=== PATIENT | female | born 1975 | race Caucasian/White ===

== ENCOUNTER 2017-04-14 08:16 | Observation (INO) ==
--- NOTE | 2017-04-14 10:53 | Cardiology Consult Note ---
Date of Encounter: 04/14/17 Time of Encounter: 10:30 Assessment and Plan (1) Idiopathic ventricular tachycardia Current Visit: Yes Status: Acute Most likely idiopathic VT. QT is normal. Potassium normal. She has no strong risk factors for coronary artery disease. Will discontinue amiodarone and start verapamil. Would likely benefit from catheter ablation. I discussed that her prognosis is relatively good if we confirm it is idiopathic VT. Echo ordered. Consult EP for definitive therapy. (2) Pre-syncope Current Visit: Yes Status: Acute 2/2 VT Discussion w patient/family: The assessment and plan as outlined above was discussed with the patient and/or family members who expressed understanding and agreement. All questions were answered. Thank you for involving us in the care of your patient. Please call with any questions. History of Present Illness Consult date: 04/14/17 Chief complaint: Dizziness/presyncope History of present illness: Mrs. Young is a 42 year old female with no previous cardiac history who regularly sees a physician who presents with complaint of dizziness and presyncope that is ongoing intermittently for a month with a few episodes. She notes upper chest/throat tightness when it occurs. No syncope. She is physically active near daily with 30 minutes of treadmill / day with running/ jogging without any limitations. She thinks she may have had an episode while on the treadmill. She went to [facility] ED and found to have salvos of VT longest being approximately 45 seconds without syncope. There she was started on amiodarone and sent here for definitive therapy. She would like to go to [place] this weekend ( night) if able, to visit family. Past Med Surg Social Fam HX - Past Medical History Medical history: no medical history Psychiatric history: anxiety - Social History Smoking Status: Never smoker Alcohol use: none Drug use: none Medications and Allergies l-Norgest/E.estradiol-E.estrad [Levono-E Estrad 0.15-0.03-0.01] 1 tab PO DAILY 04/14/17 [History] Allergies latex Allergy (Verified 04/14/17 07:09) Rash All Systems Review: A 10-system review of systems was performed and is negative for pertinent findings except as documented above in the HPI. - Constitutional Constitutional: no chills, no fever(s) - EENT Eyes: blurred vision, no loss of vision Nose, mouth and throat: no bleeding gums, no epistaxis - Cardiovascular Cardiovascular: rapid heart rate, no chest pain at rest, no chest pain with exertion, no irregular heart rhythm - Respiratory Respiratory: no dyspnea, no hemoptysis - Gastrointestinal Gastrointestinal: no coffee ground emesis, no hematochezia - Genitourinary Genitourinary: no dysuria, no hematuria - Musculoskeletal Musculoskeletal: no arthralgias, no myalgias - Integumentary Integumentary: no erythema, no rash - Neurological Neurological: no abnormal speech, no dizziness - Psychiatric Psychiatric: anxiety, no depression - Hematological/Lymphatic Hematologic/Lymphatic: no easy bleeding, no easy bruising Physical Examination Vital Signs, Last 4 Hours Temp Pulse Resp BP Pulse Ox 04/14/17 10:39 136/100 04/14/17 10:18 97.8 F 87 16 149/97 99 04/14/17 09:47 89 149/97 General: Conversant, No Apparent Distress HEENT: Atraumatic Neck: No JVD Cardiac: Reg Rate and Rhythm Lungs: Normal Breath Sounds Neuro: Alert and responsive Abdomen: Soft Skin: No rashes noted on visualized skin Musculoskeletal: No Chest Wall Tenderness Extremities: No Edema Results - EKG Interpretation EKG results cardiology: personally reviewed, sinus rhythm (noromal qt) Consult Discharge Plan - Plan Referrals: Monica Rosa CNP [Advanced Practice Nurse] - 04/22/17 10:30 am Surekha Matos CNP [Partnered Physician] - (OFFICE WILL CALL PATIENT AT HOME WITH AN APPOINTMENT) NO,PCP [Primary Care Provider] -
[2017-04-14] MEDS ORDERED: Acetaminophen 325 MG TABLET PO PRN (10:56)
[2017-04-14] MEDS ORDERED: Ondansetron 4 MG/2 ML VIAL IVP PRN (10:56)
[2017-04-14] MEDS ORDERED: *HR* Morphine 2 MG/ML SYRINGE IVP PRN (10:56)
[2017-04-14] MEDS ORDERED: Naloxone 0.4 MG/ML INJ IVP PRN (10:56)
[2017-04-14] MEDS ORDERED: 0.9 % Sodium Chloride 1,000 ML IVC SCH (11:00)
--- NOTE | 2017-04-14 11:07 | Internal Med History&Physical ---
Date of Encounter: 04/14/17 Time of Encounter: 11:05 Assessment and Plan (1) Idiopathic ventricular tachycardia Current visit: Yes Status: Acute Unknown etiology Continue telemetry, start metoprolol 25 mg twice a day. Amiodarone was stopped by cardiology. Cardiology was consulted, electrophysiology will be consulted Check magnesium Echocardiogram ordered May repeat EKG when symptomatic Fall precautions Famotidine for GI prophylaxis and sequential compression devices for DVT prophylaxis. Patient will be admitted for observation. Full code. Time spent on this admission 40 minutes (2) Pre-syncope Current visit: Yes Status: Acute Internal Medicine - H&P: HPI Chief complaint: Near syncope Admitted From: Emergency Dept History of present illness: Ms. Young is a 42 year old female with no past medical history or previous cardiac history who regularly sees a physician who presented to [facility] ER with complaint of dizziness and presyncope that is ongoing intermittently for a month with a few episodes. She notes upper chest/throat tightness when it occurs. No syncope. She is physically active near daily with 30 minutes of treadmill / day with running/jogging without any limitations. She thinks she may have had an episode while on the treadmill. At [facility], she was found to have episodes of VT longest being approximately 45 seconds without syncope. There she was started on amiodarone and sent here for definitive therapy. She had a syncopal episode a month ago, and almost every other day recently she has been blacking out. CT scan of the head is unremarkable, EKG is normal. Was evaluated by cardiology, amiodarone was stopped and metoprolol was recommended Past Med Surg Social Fam HX - Past Medical History Medical history: no medical history Psychiatric history: anxiety - Past Surgical History Surgical History: no surgical history - Social History Smoking Status: Never smoker Smokeless Tobacco Status: No Alcohol use: none Drug use: none - Additional Family History Additional family history: Mother with hypertension Internal Medicine - H&P: Meds l-Norgest/E.estradiol-E.estrad [Levono-E Estrad 0.15-0.03-0.01] 1 tab PO DAILY 04/14/17 [History] Allergies latex Allergy (Verified 04/14/17 07:09) Rash All Systems PM: A 10-system review of systems was performed and is negative for pertinent findings except as documented above in the HPI. Review of systems: No symptoms of the moment. Other systems out of the 10 reviewed were negative - Constitutional Vitals: Temp Pulse Resp BP Pulse Ox 97.8 F 87 16 136/100 99 04/14/17 10:18 04/14/17 10:18 04/14/17 10:18 04/14/17 10:39 04/14/17 10:18 General appearance: Present: A&O X 3 - Head Head exam: Present: atraumatic, normocephalic - Eye Eye exam: Present: PERRL, conjuntiva pink, sclera anicteric Pupils: Present: PERRL - Neck Neck exam general surgery: Present: supple, trachea midline. Absent: lymphadenopathy - Respiratory Respiratory exam: Present: CTAB. Absent: accessory muscle use, rales, rhonchi, wheezes - Cardiovascular Cardiovascular exam: Present: RRR, +S1, +S2. Absent: diastolic murmur, gallop, rubs, systolic murmur - GI/Abdominal GI/Abdominal exam: Present: normal bowel sounds, soft, no peritoneal signs. Absent: distended, tenderness - Extremities Exam Extremities exam: Present: warm, radial pulses palpable and symetrical. Absent : calf tenderness, cyanotic, pedal edema - Neurological Exam Neurological exam: Present: CN II-XII intact, oriented X3, no focal deficits. Absent: pronater drift, facial droop, speech deficit - Skin Skin exam: Present: dry, intact Internal Med - H&P Results - Labs Labs: Potassium 3.9, labs available from [facility] laboratory, CT scan of the head unremarkable. Magnesium was not tested
--- NOTE | 2017-04-14 11:29 | Cardiology Consult Note ---
Date of Encounter: 04/14/17 Time of Encounter: 11:15 Assessment and Plan (1) Idiopathic ventricular tachycardia Current Visit: Yes Status: Acute EP recommendations: Unclear etiology. Reports 1 month history of palpitations, pre-syncope, and x1 syncopal episode a month ago. Reports palpitations seem to improve with deep breathing. Denies immediate family hx of VT, syncope, or SCD. Admitted from [facility]--per monitor (1 lead--II); VT. Started on IV amio and transferred to [facility]. Amio gtt d/c'ed, was started on CCB by Dr. Gallegos. Agree with TTE. Keep K >4.0, and Mag >2.0. K 3.9 today, will replace with po supplementation x1. Mag pending. TSH normal. Otherwise, labs are within expected range. Discussed with Dr. Chon Encinas; patient will likely need LHC to r/o ischemic etiology. Will make NPO after MN. (2) Pre-syncope Current Visit: Yes Status: Acute Likely secondary to VT. Plan as above. Discussion w patient/family: The assessment and plan as outlined above was discussed with the patient and/or family members who expressed understanding and agreement. All questions were answered. Thank you for involving us in the care of your patient. Please call with any questions. The patient will be discussed and reviewed with Dr. Chon Encinas, changes to be made accordingly. History of Present Illness Consult date: 04/14/17 Requesting physician: Bill Gallegos Consult reason: EP consult--VT Chief complaint: Palpitations, pre-syncope History of present illness: This document serves as an Electrophysiology Consult note. Ms. Young is a 42 year old female with no significant PMH who presented to [facility] ED today with complaints of pre-syncope and palpitations. States 1-month history of palpitations associated dizziness, chest tingling, and x1 syncopal episode a month ago. Saw PCP who ordered CT of head. Over the past month, reports 2-3 pre-syncopal episodes; nothing seems to trigger symptoms. Symptoms typically will improve with deep breathing. She reports she is fairly active, runs on treadmill 5x weekly for at least 30 minutes. Denies chest pain or discomfort. Denies illicit or recreational drug use. Denies tobacco, ETOH, or use of diet pills. States drinks 1 cup of coffee per day. No significant immediate family hx of CAD or SCD--states maternal grandmother had CHF and defibrillator. Past Med Surg Social Fam HX - Past Medical History Attestation: Yes The following information was validated with the patient. Source: patient Medical history: no medical history Psychiatric history: anxiety - Past Surgical History Surgical History: no surgical history - Social History Smoking Status: Never smoker Smokeless Tobacco Status: No Alcohol use: none Drug use: none - Family History Mother Living Status: Still Living Hx Family Cardiac Disorders: Yes (HTN) Father Living Status: Still Living (No significant medical history.) Maternal Grandmother Living Status: Hx Family Cardiac Disorders: Yes (CHF, ICD) Hx Family Endocrine Disorder: Yes (DMII) Medications and Allergies l-Norgest/E.estradiol-E.estrad [Levono-E Estrad 0.15-0.03-0.01] 1 tab PO DAILY 04/14/17 [History] Allergies latex Allergy (Verified 04/14/17 07:09) Rash All Systems Review: A 10-system review of systems was performed and is negative for pertinent findings except as documented above in the HPI. - Cardiovascular Cardiovascular: as per HPI Physical Examination Vital Signs, Last 4 Hours Temp Pulse Resp BP Pulse Ox 04/14/17 10:39 136/100 04/14/17 10:18 97.8 F 87 16 149/97 99 04/14/17 09:47 89 149/97 General: Conversant, No Apparent Distress HEENT: Atraumatic, Normocephaly, Mucus Membranes Moist Neck: Normal carotid pulses Cardiac: Reg Rate and Rhythm, Normal S1 and S2 Lungs: Normal Breath Sounds Neuro: Alert and responsive Abdomen: Soft Skin: No rashes noted on visualized skin Musculoskeletal: No Chest Wall Tenderness Extremities: No Edema, Normal Pulses Results - Imaging and Cardiology Echo: pending Other Results: Telemetry: HR 80's. - EKG Interpretation EKG results cardiology: personally reviewed Consult Discharge Plan - Plan Referrals: Monica Rosa CNP [Advanced Practice Nurse] - 04/22/17 10:30 am Surekha Matos CNP [Partnered Physician] - (OFFICE WILL CALL PATIENT AT HOME WITH AN APPOINTMENT) NO,PCP [Primary Care Provider] -
[2017-04-14] MEDS: Magnesium Oxide 400 MG TABLET PO SCH ×2 (15:00→20:29)
--- NOTE | 2017-04-14 15:12 | ECHO - Doppler Report ---
Echo with Saline Contrast Name: Larissa Young Date of Study: 04/14/2017 Date: 1975 Ht: 66.0 in Medical Record#: [id number] Age: 42 Wt: 144.0 lb Gender: Female BSA: 1.74 Order #: [id number] Location: [facility] Room #: [id number] Reading Physician: Angela Hameed DO Quality Control Manager: Mina Garcia RN Ordering Physician: Bill Gallegos MD, [facility] Primary Physician: None Indications: Arrhythmia Impressions: LVEF 60%. Normal left ventricular size and systolic function. Normal diastolic function of the left ventricle. Normal right ventricular size and function. No significant valvular dysfunction. No pulmonary hypertension. There is evidence of a PFO with agitated saline contrast. Left Ventricular Wall Motion: Rest Echo Findings All wall segments showed normal motion. Findings: Study Quality * Technically adequate exam. ECG Findings * Normal sinus rhythm. Left Ventricle * LVEF 60%. * Normal LV chamber size, wall thickness and function. * Normal left ventricular diastolic function. Left Atrium * Normal left atrial size. Mitral Valve * Normal mitral valve structure. * No mitral stenosis. * Trace mitral regurgitation. Aortic Valve * No aortic regurgitation. * Aortic valve not well visualized. * No aortic stenosis. Tricuspid Valve * Normal tricuspid valve structure. * No tricuspid regurgitation. Pulmonic Valve * Pulmonic valve is not well visualized. * No pulmonic stenosis. * No pulmonic regurgitation. Pulmonary Artery * Pulmonary artery not well visualized. Right Ventricle * Normal right ventricular structure and function. Right Atrium * Normal right atrial size. Interatrial Septum * There is a PFO by agitated saline contrast, History Contrast: Agitated saline 10 ml. Measurements: BP: 149/ 97 2D Normal Values RVIDd: 2.60 cm <2.7 cm IVSd: .80 cm 0.6 - 1.0 cm LVIDd: 5.30 cm 3.7 - 5.6 cm LVPWd: .80 cm 0.6 - 1.1 cm LVIDs: 3.50 cm 1.5 - 3.6 cm %FS: 34.00 cm >25 % LVOT Diam: 2.00 cm LA volume: Mitral Valve Peak E:.61 m/sec Peak A:.54 m/sec E/A Ratio:1.1 Peak E' Lat Clifford:12.4 cm/s Peak E' Med Clifford:9.94 cm/s E/E' Lat Ratio:4.9 E/E' Med Ratio:6.1 Tricuspid Valve TV Regurg Peak Grad: 16.00mmHg TV Regurg Peak Clifford: 2.00m/sec Updated by Angela Hameed on 04/14/2017 3:06:29 PM electronically signed on 04/14/2017 3:07:32 PM with status of Final Wall Motion Garcia: 1=Normal, 2=Hypokinesis, 3=Akinesis, 4=Dyskinesis, 5=Aneurysmal, 6=Hyperkinetic, X=Not Visualized (Blank)=Missing
[2017-04-14] MEDS ORDERED: *HR* Heparin 5,000 UNIT/ML VIAL IVP ONE (17:22)
[2017-04-14] MEDS ORDERED: *HR* Heparin 5,000 UNIT/ML VIAL IVP PRN ×2 (17:22)
[2017-04-14] MEDS ORDERED: Heparin 25,000 UNIT/500 ML D5W 25,000 UNIT/500 ML MLS IVC SCH (17:30)
[2017-04-14 17:54] LABS: Hematocrit 41.3 % (35.3-44.9); Hemoglobin 13.6 g/dL (11.5-15.4); Mean Corpuscular HGB Conc 32.9 g/dL (31.6-35.5); Mean Corpuscular Hemoglobin 29.4 pg (28.0-33.3); Mean Corpuscular Volume 89.2 fL (83.0-100.0); Mean Platelet Volume 9.9 fL (9.4-12.4); Red Blood Count 4.63 M/mcL (3.82-4.97); Red Cell Distribution Width 13.2 % (11.5-14.5)
[2017-04-14 18:29] LABS: INR 1.1; Prothrombin Time 11.4 Seconds (9.4-12.1)
[2017-04-14 18:30] LABS: Activated Partial Thrombo Time 26.6 Seconds (26.0-36.0)
[2017-04-14] MEDS: Famotidine 20 MG TABLET PO SCH (20:29)
[2017-04-15 06:08] LABS: Blood Urea Nitrogen 8 mg/dL (7-20); Calcium 8.4 mg/dL (8.6-10.8); Carbon Dioxide 22 mEq/L (19-29); Chloride 109 mEq/L (98-109); Glucose 87 mg/dL (70-99); Magnesium 1.9 mg/dL (1.6-2.6); Osmolality,Calculated 286 (280-300); Potassium 4.1 mEq/L (3.5-4.5); Sodium 139 mEq/L (136-145)
[2017-04-15 06:31] LABS: BUN/Creatinine Ratio 10 (6-26); eGFR For African Americans > 60 (> 60); eGFR For Non-African Americans > 60 (> 60)
[2017-04-15] MEDS: Famotidine 20 MG TABLET PO SCH (08:12)
[2017-04-15] MEDS ORDERED: Magnesium Oxide 400 MG TABLET PO SCH (09:00)
[2017-04-15] MEDS ORDERED: Aspirin Enteric Coated 81 MG Tablet PO SCH (09:00)
--- NOTE | 2017-04-15 09:37 | Pre-Sedation Evaluation ---
Pre-sedation evaluation - Pre-sedation checklist Date of procedure: 04/15/17 Procedure: [facility] Recent Vitals: Last Vital Signs Temp 98.4 F 04/15/17 08:24 Pulse 66 04/15/17 08:24 Resp 18 04/15/17 08:24 BP 118/87 04/15/17 08:24 Pulse Ox 98 04/15/17 08:24 H&P (including ROS) documented in medical record: Yes Previous reaction to sedatives/anesthetics: Unknown Dietary Status: NPO after Midnight Airway Assessment: Patient can open mouth completely, TMJ function normal, Micrognathia (under-bite, receding chin) absent, Neck with adequate range of motion Dentition: No loose teeth or bridges Possible difficult airway: No ASA Classification *see protocol: CLASS II-Mild systemic disease Plan of Care: Pt appropriate candidate for procedure/moderate/conscious sedation , Risks/benefits of procedure/sedation discussed w/ patient/family
[2017-04-15] MEDS ORDERED: *HR* FentaNYL (PF) 100 MCG/2 ML VIAL ONE (09:45)
[2017-04-15] MEDS ORDERED: 0.9 % Sodium Chloride 1,000 ML ONE ×2 (09:45→10:12)
[2017-04-15] MEDS ORDERED: *HR* Midazolam HCl 2 MG/2 ML VIAL ONE (09:45)
[2017-04-15] MEDS ORDERED: Heparin 1,000 UNITS/500 mL NS 500 ML ONE (09:45)
[2017-04-15] MEDS ORDERED: *HR* Heparin 10,000 UNIT/10 ML VIAL ONE (09:46)
[2017-04-15] MEDS ORDERED: Nitroglycerin 1,000 MCG/10 ML VIAL IV ONE (09:46)
--- NOTE | 2017-04-15 10:47 | Invasive Diagnostic Lab Proc ---
Name: Larissa Young Date of Study: 04/15/2017 Date: 1975 Ht: 66.1in Medical Record#: [id number] Age: 42 Wt: 138.89lb Gender: Female BSA: 1.72 Order #: [id number] BMI: 22.32 Physicians Procedure Physician: Fany Encinas MD, [facility] Referring MD: Referring MD: Staff Name Position Time In Cindy Razo RN Monitor 10:11 AM Lakesha Ambrosio RN Senior Clinical Sas Programmer 10:11 AM Nevaeh Barron RT Scrub 10:11 AM Indications Indication vtach Procedures Performed Procedure L HRT ARTERY/VENTRICLE ANGIO Pre-Procedure Checklist Informed consent is complete signed and on chart. H\\T\\P is on chart. ID band is on and ID verified with patient. Patient NPO for procedure The procedure was described for the patient and questions were answered. ECG is on chart. Rhythm: NSR Plan of Care Patient will tolerate the procedure without complications. Adequate level of comfort will be maintained. Hemodynamics will remain stable Patient will recover from procedure without complications. Respiratory function will be maintained. Cardiac rhythm will remain stable. Patient temperature will be maintained. Patient and/or family have verbalized understanding of the procedure. Patient Education Chief Complaint/Reason for Test: Cardiac Cath Developmental Category: Adult (18-64 years) Developmentally Appropriate for Age: Yes Learning Barriers: None Education Needs: Procedure Education Method: Verbal Information Taught: Cardiac Cath Educational Evaluation: Able to repeat information Intravenous Access Time IV Size Location DC'd Fluid/Drip Rate Units RN 10:14 AM 20g 1 1/4" Patent On Arrival Rt Arm 0.9NaCl 25 ml/hr Allergies latex Vital Signs Time BP (mmHg) HR (bpm) O2 Sat. RR (bpm) LOC 10:12 AM / % 5 = Fully awake and oriented or at pre-proc level 10:12 AM / % 5 = Fully awake and oriented or at pre-proc level 10:19 AM / % 5 = Fully awake and oriented or at pre-proc level 10:29 AM / % 5 = Fully awake and oriented or at pre-proc level 10:11 AM 139 / 95 83 98 % 9 10:16 AM 134 / 79 80 100 % 10 10:21 AM 132 / 76 70 97 % 21 10:26 AM 127 / 77 71 97 % 17 10:32 AM 127 / 77 84 96 % 17 10:36 AM 126 / 83 77 97 % Procedural Medications Time Medication Dose Units Method Given By 10:12 AM Oxygen 2 L/min nasal cannula Lakesha Ambrosio RN 10:14 AM Versed 2 mg Intravenous Lakesha Ambrosio RN 10:14 AM Fentanyl 50 mcg Intravenous Lakesha Ambrosio RN 10:24 AM Lidocaine 2% 11 ml Subcutaneous Fany Encinas MD, FACC 10:24 AM Benadryl 25 mg Intravenous Lakesha Ambrosio RN ASA Classification: CLASS II- Mild systemic disease (i.e. well-controlled diabetes, hypertension, asthma, cigarette smoking) R[place]hawn Score Preprocedure Postprocedure Activity 2- Moves 4 extremities sustained head lift Activity 2- Moves 4 extremities sustained head lift Circulation 2- SBP +/= 20 points of pre-anesthetic level Circulation 2- SBP +/= 20 points of pre-anesthetic level Consciousness 2- Awake and alert oriented x 3 Consciousness 2- Awake and alert oriented x 3 O2 Saturation 2- Able to maintain O2 satruation of 92% on room air O2 Saturation 2- Able to maintain O2 satruation of 92% on room air Respiratory 2- Able to deep breathe and cough well Respiratory 2- Able to deep breathe and cough well Total Score 10 Total Score 10 Contrast Agent: Isovue Diagnostic Contrast: 54 ml Total Contrast: 54 ml Fluoro Dose: 64 mGy Procedure Log Time Note Enter By 10:10 AM negative test ejohnson 10:11 AM Vitals capture started with the following parameters, Patient=Adult, Interval=5 min, Initial Dgattmeq=556 mmHg, Deflation Rate=5 mmHg, Cuff placed on Right Arm 10:11 AM CathStat 10:11 AM Pt arrived to corn lab technician 2 at 10:11 ejohnson 10:11 AM Cindy Razo RN Position: Monitor Time in: 10:11 ejohnson 10:11 AM HR=83 bpm, FIHQ=587/95 mmhg, SpO2=98.0 %, Resp=9 B/min, Comment=SR 10:11 AM Lakesha Ambrosio RN Position: Senior Clinical Sas Programmer Time in: 10:11 ejohnson 10:11 AM Nevaeh Barron RT Position: Scrub Time in: 10:11 ejganson 10:12 AM Patient charges- Angio tray pack, Navilyst 3mm J, Pulse Oximetry and ACIST tubing and transducer ejohnson 10:12 AM Case Delayed No ejohnson 10:12 AM Hair removed from procedure site in holding area using clippers. Bilateral groin prepped with Chloraprep by Nevaeh Barron, safety strap applied then patient was draped. Skin intact. ejohnson 10:12 AM ASA Class CLASS II- Mild systemic disease (i.e. well-controlled diabetes, hypertension, asthma, cigarette smoking) ejohnson 10:12 AM Physician arrived 10:12 ejohnson 10:12 AM Meet and greet completed ejohnson 10:12 AM Sign in performed according to hospital policy. ejohnson 10:12 AM Procedure start 10:12 ejohnson 10:12 AM Time: 10:12 Oxygen on at 2 L/min per nasal cannula by Lakesha Ambrosio RN ejganson 10:12 AM Time: 10:12 Patient comfortable and pain free: Yes ejohnson 10:12 AM Time: 10:12LOC: 5 = Fully awake and oriented or at pre-proc level ejohnson 10:13 AM Recorded ECG: HR=78 Condition=Condition 1 10:14 AM Time: 10:14 Versed 2 mg Intravenous Given by Lakesha Ambrosio RN ejgansserina 10:16 AM HR=80 bpm, ESYV=194/79 mmhg, PwM5=460.0 %, Resp=10 B/min, Comment=SR 10:16 AM Time: 10:14 Fentanyl 50 mcg Intravenous Given by Lakesha Ambrosio RN ejgansserina 10:19 AM Time: 10:12 Patient comfortable and pain free: Yes ejohnson 10:19 AM Time: 10:12LOC: 5 = Fully awake and oriented or at pre-proc level ejohnson 10:21 AM HR=70 bpm, TOGH=348/76 mmhg, SpO2=97.0 %, Resp=21 B/min, Comment=SR 10:23 AM Time out performed according to hospital policy ejohnson 10:23 AM Pressure channel 1 zero failed. 10:23 AM Pressure channel 1 zeroed. 10:24 AM Time: 10:24 11 ml Lidocaine 2% to right groin Subcutaneous Given by Fany Encinas MD, [facility] ejohnson 10:24 AM Time: 10:24 Benadryl 25 mg Intravenous Given by Lakesha Ambrosio RN ejohnson 10:25 AM Access obtained by percutaneous puncture. 5Fr 10cm Terumo [place] sheath placed in right Femoral artery. [id number] ejohnson 10:26 AM HR=71 bpm, GEHM=740/77 mmhg, SpO2=97.0 %, Resp=17 B/min, Comment=SR 10:26 AM 5Fr FL 4 catheter inserted over the wire DNC ejohnson 10:27 AM Recorded Pressure: Ao, HR=78, Condition=Condition 1 (Aorta) Ao 114/81/97 10:27 AM LCA angiography performed in multiple views. ejohnson 10:27 AM Catheter removed ejohnson 10:28 AM 5Fr FR 4 catheter inserted over the wire DNC ejohnson 10:29 AM Time: 10:19 Patient comfortable and pain free: Yes ejohnson 10:29 AM Time: 10:19LOC: 5 = Fully awake and oriented or at pre-proc level ejohnson 10:29 AM RCA angiography performed in multiple views. ejohnson 10:29 AM Recorded Pressure: Ao, HR=79, Condition=Condition 1 (Aorta) Ao 111/87/99 10:29 AM Catheter removed ejohnson 10:30 AM Coronary Dominance: right ejohnson 10:30 AM 5Fr Pigtail catheter inserted over the wire DNC ejohnson 10:30 AM Pressure channel 1 zero failed. 10:30 AM Pressure channel 1 zero failed. 10:31 AM Pressure channel 1 zeroed. 10:31 AM Recorded Pressure: LV, LL=467, Condition=Condition 1 (Left Ventricle) LV 97/37/12 10:31 AM Catheter selectively placed in left ventricle ejohnson 10:31 AM Bolus angiogram of left Ventricle complete: 8 ml/sec for a total of 24 mls ejohnson 10:31 AM Recorded Pressure: LV, Ao, HR=75, Condition=Condition 1 (Left Ventricle) LV 102/14/60, (Aorta) Ao 118/82/102 10:32 AM Catheter removed ejohnson 10:32 AM Bolus angiogram of right Femoral complete: 2 ml/sec for a total of 4 mls ejohnson 10:32 AM HR=84 bpm, ZGFJ=979/77 mmhg, SpO2=96.0 %, Resp=17 B/min, Comment=SR 10:32 AM Time: 10:29 Patient comfortable and pain free: Yes ejohnson 10:32 AM Time: 10:29LOC: 5 = Fully awake and oriented or at pre-proc level ejohnson 10:33 AM Procedure completed at 10:33 ejohnson 10:33 AM Sign out completed: Radiation Dose 64.1 mGy Fluoro Time: 1.1 Isovue 370 - 200ml contrast 54 ml given by Fany Encinas MD, FACC. Complications: NoneCardiac Rehab Consult needed: NoConfirmed administered medications: Yes ejohnson 10:34 AM Isovue 370 - 200ml,1 Bottle(s) used. ejohnson 10:34 AM Arterial sheath pulled, Mynx closure device used and was Successful S/N. ejohnson 10:34 AM Post ECG NSR ejohnson 10:34 AM Post Blood Pressure 127/77 ejohnson 10:34 AM 10:34 Post Pulses Bilateral DP \\T\\ PT 1+ ejohnson 10:34 AM Information taught Mynx and Cardiac Cath ejohnson 10:34 AM Education needs Plan of Care and Responsibilities of Patient in Care ejohnson 10:34 AM Learning barriers :None ejohnson 10:34 AM Education Methods Verbal ejohnson 10:34 AM Education evaluation Able to repeat information ejohnson 10:36 AM pressure held for 4 minutes per Javier Barron due to Heparin pre-procedure. ejohnson 10:36 AM Plavix, Effient or Brilinta given No ejohnson 10:36 AM Complications: None ejohnson 10:36 AM HR=77 bpm, ILID=873/83 mmhg, SpO2=97.0 %, Comment=SR 10:41 AM Site status No bleeding/hematoma - Rt Groin as reported by Nevaeh Barron RT at 10:41 ejohnson 10:42 AM Report given to Madiha MANZANARES Pt taken to 2N Room #7. 10:42 ejohnson 10:42 AM Patient out of room: 10:42 ejohnson Complications Complication None Hemodynamics Pressures Site Systolic/A Wave Diastolic/V Wave Mean AO 114 81 97 AO 111 87 99 LV 97 37 12 LV 102 14 60 AO 118 82 102 Post Procedure Information Blood Pressure: 127/77 mmHg Rhythm: NSR Post procedural instructions were given Closure Device Time Device Success/Fail 04/15/2017 10:34:00 AM Mechanical Compression Successful Site Checks Time Location Status Staff Sheath In? Note 10:41 AM Rt Groin No bleeding/hematoma Nevaeh Barron RT Pulses Time Site Pre-Procedure Post-Procedure Note 04/15/2017 10:14:00 AM Bilateral DP \\T\\ PT 1+ 04/15/2017 10:14:00 AM Bilateral radial 2+ 10:34:00 AM Bilateral DP \\T\\ PT 1+ Updated by Cindy Razo RN on 04/15/2017 10:42:44 AM Cindy Razo RN electronically signed on 04/15/2017 10:43:09 AM with status of Final
--- NOTE | 2017-04-15 12:37 | Invasive Diagnostic Lab ---
Name: Larissa Young Date of Study: 04/15/2017 Date: 1975 Ht: 168.0 cm /66.1 in Medical Record#: [id number] Age: 42 Wt: 63. kg / 138.89 lb Account/Order#: [id number] Gender: Female BSA: 1.72 Order #: [id number] Fluoro Dose: 64 mGy BMI: 22.32 Procedure Physician: Fany Encinas MD, FACC Referring MD: Referring MD: Procedures Performed: LEFT HEART CATH Indications: Ventricular tachycardia, syncope Impressions: Coronary arteries are angiographically normal. The left ventricle is normal and has normal contractility EF 65% Recommendations: Optimal medical therapy of patient's disease. Aggressive risk factor modification. History/Risk Factors: VTACH Procedure Access obtained in the right Femoral artery by percutaneous puncture Complications: None Contrast: Isovue 54ml Hemodynamics: Pressures Site Systolic/ A Wave Diastolic/ V Wave End Diastolic/ Mean HR AO 114 81 97 78 AO 111 87 99 79 LV 97 37 12 104 LV 102 14 60 65 AO 118 82 102 89 LV Ventriculography Ejection Method: LV Gram Ejection Fraction: 65% Wall Motion: TONEY Anterobasal Normal Anterolateral Normal Apical: Normal Inferoapical Normal Inferobasal Normal Coronary Dominance: right Lesion Findings/Interventions * Left Main Coronary Artery The LMCA is angiographically free of disease. * Left Anterior Descending The LAD is angiographically free of disease. The 1st Diagonal is angiographically free of disease. * Circumflex The Circumflex is angiographically free of disease. The 1st Marginal is angiographically free of disease. * Right Coronary Artery The RCA is angiographically free of disease. The Right PDA is angiographically free of disease. Updated by Cindy Razo RN on 04/15/2017 10:40:23 AM Fany Encinas MD, FACC electronically signed on 04/15/2017 12:34:29 PM with status of Final
--- NOTE | 2017-04-15 13:56 | Transfer Summary ---
Date of Encounter: 04/15/17 Time of Encounter: 13:00 Transfer Discharge Sum: Diag - Discharge Diagnosis (1) Idiopathic ventricular tachycardia Status: Acute (2) Pre-syncope Status: Acute Transfer Discharge Sum: Med - Medications Active and Home Medications: Home Medications l-Norgest/E.estradiol-E.estrad [Levono-E Estrad 0.15-0.03-0.01] 1 tab PO DAILY 04/14/17 [History Confirmed 04/14/17] Active Medications Acetaminophen (Tylenol) 650 mg PO Q6HR PRN PRN Reason: Mild Pain (1-3) Stop: 10/14/17 10:57 Aspirin (Aspirin Ec) 81 mg PO DAILY [facility] Stop: 10/15/17 09:01 Last Admin: 04/15/17 08:12 Dose: 81 mg Famotidine (Pepcid) 20 mg PO BID [facility] Stop: 10/14/17 21:01 Last Admin: 04/15/17 08:12 Dose: 20 mg Magnesium Oxide (Mag-Ox) 400 mg PO BID [facility] PRN Reason: Protocol Stop: 04/15/17 21:01 Last Admin: 04/15/17 08:25 Dose: 400 mg Metoprolol Tartrate (Lopressor) 25 mg PO BID [facility] Stop: 10/15/17 21:01 Last Admin: 04/15/17 11:20 Dose: 25 mg Morphine Sulfate (Morphine Sulfate) 2 mg IVP Q4HR PRN PRN Reason: Severe Pain (7-10) Stop: 10/14/17 10:57 Naloxone HCl (Narcan) 0.4 mg IVP Q2MIN PRN PRN Reason: Opioid Reversal Stop: 10/14/17 10:57 Ondansetron HCl (Zofran) 4 mg IVP Q8HR PRN PRN Reason: Nausea And Vomiting Stop: 10/14/17 10:57 Transfer Discharge Sum: Data Procedures and tests throughout hospitalization: Pending Orders 04/14/17 10:56 Peripheral IV [RC] CONT Placement to Observation Routine Acetaminophen [Tylenol] 650 mg PO Q6HR PRN Morphine [Morphine Sulfate] 2 mg IVP Q4HR PRN Naloxone [Narcan] 0.4 mg IVP Q2MIN PRN Ondansetron [Zofran] 4 mg IVP Q8HR PRN Resuscitation Status: Active [RES] Routine 04/14/17 10:57 Cardiac Monitoring Med/Surg [RC] .CONT 04/14/17 10:58 Consult to Cardiology [CONS] Routine 04/14/17 11:00 Up with Assist Daily 04/14/17 11:11 SCD [Intermittent pneumatic cyndie] [RC] .CONTINUOUS 04/14/17 15:42 Signed consent on chart [RC] .ONCE 04/14/17 17:22 Assess for bleeding [RC] .PER UNIT PROTOCOL Communication order [RC] .PRN Notify provider [RC] .PRN 04/14/17 21:00 Famotidine [Pepcid] 20 mg PO BID 04/15/17 09:00 Aspirin Enteric Coated [Aspirin EC] 81 mg PO DAILY Magnesium Oxide [Mag-Ox] 400 mg PO BID 04/15/17 10:55 Bed rest w/bathroom privileges [RC] .ONCE Communication order [RC] ONCE Sheath management 1 [RC] ONCE Advance Diet as Tolerated Routine 04/15/17 21:00 Metoprolol [Lopressor] 25 mg PO BID 04/15/17 Lunch Cardiac Diet 04/16/17 07:00 Cardiac Cath Site Preparation Routine - Impressions Head CT ([place] [facility]) 04/14/17: no acute intracranial abnormality. TTE 04/14/17--CD sent. LHC 04/15/17--CD sent. Transfer Discharge Sum: Prov Date of admission: 04/14/17 10:13 Primary care physician: PCP NO Admitting clinician: Bill Gallegos Attending physician on admission: Rina Agudelo Consults: 04/14/17 10:58 Consult to Cardiology [CONS] Routine Comment: Consulting Provider: Cardiology Molly Reason for Consult: VT Call Completed: Yes Attending physician on discharge: Chon Encinas Discharging clinician: Surekha Matos Anticipated date of transfer: 04/15/17 Receiving physician/facility: [facility]--Dr. Rosendo Estrada. Transfer Discharge Sum: A/P - Plan Cognitive capacity at transfer: Alert and oriented x3--no limitation in cognitive function. Functional capacity at transfer: independent ambulation Overall status at transfer: patient is not back to baseline Disposition: Transfer Intermediate Care Fac Transfer Discharge Sum: Hosp Hospital course: Ms. Young is a 42 year old female no significant PMH who presented to [place] ED on 04/14/17 with complaints of pre-syncope and palpitations. States 1-month history of palpitations associated dizziness, chest tingling, and x1 syncopal episode a month ago. Saw PCP who ordered CT of head. Over the past month, reports 2-3 pre-syncopal episodes; nothing seems to trigger symptoms. Symptoms typically will improve with deep breathing. She reports she is fairly active, runs on treadmill 5x weekly for at least 30 minutes. Denies chest pain or discomfort. Denied illicit or recreational drug use. Denies tobacco, ETOH, or use of diet pills. States drinks 1 cup of coffee per day. No significant immediate family hx of CAD or SCD--states maternal grandmother had CHF and defibrillator. TTE on 04/14/17 demonstrated normal LV size and systolic function, EF 60% with normal diastolic function, normal RV structure and function, no significant valvular dysfunction, no PH, PFO with agitated saline contrast, and normal wall motion. LHC on 04/15/17 that demonstrated normal coronaries angiographically free of significant CAD. Continue to have episodes of NSVT and VT, max 48 beats overnight. VT polymorphic and monomorphic. Primary cardiology started on Verapamil 40 mg TID on 04/14/17, after discussion with EP, stopped CCB and started Lopressor 25 mg BID. After discussion with Dr. Chon Encinas (EP), recommend transfer to tertiary center for advanced therapies including ventricular ablation. Patient is being transferred to [facility] under the care of Dr. Rosendo Estrada for further EP work-up evaluation and likely VT ablation. Patient/ at bedside and agree with plan. The patient was discussed and reviewed with Dr. Chon Encinas at length prior to transfer. - Time Spent with Patient Total time spent providing and/or coordinating transfer services: 1 hour Greater than 30 minutes Transfer Discharge Sum: Exam - Constitutional Vitals: Vital Signs Temp Pulse Resp BP Pulse Ox 04/15/17 12:39 72 125/89 04/15/17 12:00 64 124/87 04/15/17 11:51 98.1 F 68 16 115/79 98 04/15/17 11:30 72 122/85 04/15/17 11:15 70 129/86 04/15/17 11:13 66 04/15/17 11:11 78 04/15/17 11:00 77 131/94 04/15/17 08:24 98.4 F 66 18 118/87 98 04/15/17 08:00 74 04/15/17 04:45 97.9 F 67 17 117/83 98 04/15/17 04:30 88 04/14/17 23:10 88 04/14/17 22:50 98.2 F 75 16 125/85 98 04/14/17 20:51 98.1 F 69 16 136/89 98 04/14/17 20:30 68 04/14/17 15:33 97.6 F 88 16 131/88 98 04/14/17 15:03 62 Intake and Output 04/14/17 04/15/17 04/15/17 23:59 07:59 15:59 Intake Total 2200 / 2200 126 / 126 360 / 360 Output Total 1999 / 1999 1000 / 1000 Balance 200 / 200 126 / 126 -640 / -640 Intake: IV Fluids 126 / 126 Heparin 25,000 UNIT/500 126 / 126 ML D5W 25,000 unit In 500 ml @ 12 UNIT/KG/HR 15.72 mls/hr IVC .Q24H CARLITOS Rx# :[id number] Oral 2200 / 2200 0 / 0 360 / 360 Output: Urine 1999 / 1999 1000 / 1000 Other: Meal Dinner Lunch Percent of Meal Consumed 0% 100% Weight 63.5 kg Patient Weight 04/15/17 23:59 Weight 63.5 kg General appearance: average body habitus, thin - Head Head exam: Present: atraumatic - Eye Eye exam: Present: EOMI, normal appearance, PERRL Pupils: Present: PERRL - ENT ENT exam: Present: mucous membranes moist, normal exam, normal external ear exam - Neck Neck exam: Present: full ROM - Respiratory Additional comments: Clear breath sounds throughout - Cardiovascular Additional comments: Regular rate and rhythm, frequent ectopy. No clicks, rubs, or murmurs. - GI/Abdominal GI/Abdominal exam: Present: normal bowel sounds - Extremities Exam Extremities exam: Present: full ROM, normal capillary refill, normal inspection Additional comments: Right groin cath site: (Mynx closure device). Dressing clean, dry, and intact, no bleeding, oozing, or hematoma at site. +2 DP/PT pulses bilaterally. - Neurological Exam Neurological exam: Present: normal gait, oriented X3, reflexes normal, no focal deficits - Psychiatric Psychiatric exam: Present: normal affect, normal mood - Skin Skin exam: Present: normal color - VTE Documentation of Mechanical Device: Intermittent pneumatic compression device
[2017-04-15 14:08] VITALS: BP 114/74
--- NOTE | 2017-04-15 14:45 | Internal Med Progress Note ---
Date of Encounter: 04/15/17 Time of Encounter: 11:00 - Assessment and plan (1) Idiopathic ventricular tachycardia Current Visit: Yes Status: Acute Assessment and plan: Evaluated by cardiology. Failed treatment with verapamil. Not placed on beta kerry and cardiology recommends transfer to tertiary care center for further evaluation and management for the tachycardia. High-risk for complications due to V. tach. Continue telemetry monitoring and stepdown unit. (2) Pre-syncope Current Visit: Yes Status: Acute Assessment and plan: Due to V. tach. No new episodes of syncope or presyncope today. - Subjective Interval history: Patient underwent left heart catheterization and was not found to have any coronary occlusion. She did have runs of V. tach this morning despite being on verapamil. Denies any chest pain at this time. No dizziness or lightheadedness. - Constitutional Vitals: Temp Pulse Resp BP Pulse Ox 98.2 F 65 16 114/74 98 04/15/17 14:03 04/15/17 14:03 04/15/17 14:03 04/15/17 14:03 04/15/17 14:03 General appearance: Present: A&O X 3 - Respiratory Respiratory exam: Present: CTAB. Absent: accessory muscle use, rales, rhonchi, wheezes - Cardiovascular Cardiovascular exam: Present: RRR, +S1, +S2. Absent: diastolic murmur, gallop, rubs, systolic murmur - GI/Abdominal GI/Abdominal exam: Present: normal bowel sounds, soft, no peritoneal signs. Absent: distended, tenderness - Neurological Exam Neurological exam: Present: alert, oriented X3, no focal deficits. Absent: facial droop, speech deficit Internal Medicine: Result - Labs CBC & Chem 7: 04/14/17 17:31 04/15/17 00:48 Labs: Short CBC 04/14/17 Range/Units 17:31 WBC 10.4 (4.3-11.1) K/mcL Hgb 13.6 (11.5-15.4) g/dL Hct 41.3 (35.3-44.9) % Plt Count 240 (140-400) K/mcL BMP 04/15/17 00:48 Sodium 139 Potassium 4.1 Chloride 109 Carbon Dioxide 22 BUN 8 Creatinine 0.78 Glucose 87 Calcium 8.4 L - ABG Interpretation ABG results: PT/INR, D-dimer PT 11.4 Seconds (9.4-12.1) 04/14/17 17:31 - VTE Documentation of Mechanical Device: Intermittent pneumatic compression device Consult Discharge Plan - Plan Referrals: Monica Rosa CNP [Advanced Practice Nurse] - (patient went to [place] no PCP appointment needed) Surekha Matos CNP [Partnered Physician] - (OFFICE WILL CALL PATIENT AT HOME WITH AN APPOINTMENT) - Attending Attestation This document has been at least partially created by [email or web address] recognition technology by Dr. Agudelo. Errors in grammar, wording or other phrases may exist. If errors are found after the documentation is signed, they will be addressed individually in the addendum section of this document when appropriate.
--- NOTE | 2017-04-15 16:38 | Electrocardiograph Report ---
[place] [address] Test Date: 2017-04-14 Pat Name: Larissa Young Department: 110 Room: 07 Gender: F Web Developer Programmer: BELEM : 1975 Requested By: Rina Agudelo Order Number: [id number] Reading MD: Fany Encinas Measurements Intervals [place] Rate: 82 P: 55 CA: 150 QRS: 39 QRSD: 87 T: 35 QT: 383 QTc: 422 Interpretive Statements SINUS RHYTHM WITH OCCASIONAL VENTRICULAR PREMATURE COMPLEXES Electronically Signed On 04-15-2017 16:37:15 EDT by Fany Encinas
--- NOTE | 2017-04-16 12:53 | Electrocardiograph Report ---
[address] [address] Test Date: 2017-04-15 Pat Name: Larissa Young Department: 110 Room: 2N07 Gender: F Wind Energy Technician: BELEM : 1975 Requested By: Rina Agudelo Order Number: [id number] Reading MD: Bill Gallegos MD Measurements Intervals [place] Rate: 123 P: 58 ID: [id number] QRS: 47 QRSD: 89 T: 45 QT: 378 QTc: 451 Interpretive Statements SINUS TACHYCARDIA WITH 13 beat run of ventricular tachycardia likely to be RVOT origin (LBBB with inferior axis) Electronically Signed On 04-16-2017 12:52:17 EDT by Bill Gallegos MD
== END 2017-04-15 15:28 ==
LOC: 2NNU
PROVIDERS: ADMIT Internal Medicine; ATTEND Internal Medicine